=== PATIENT | female | born 1930 | race Caucasian/White ===

== ENCOUNTER 2017-08-21 07:47 | Emergency (ER) | payer MEDICARE ==
[~2017-08-21] VITALS: Ht 167.6 cm; Wt 88.6 kg
[~2017-08-21 07:47] MED LIST: AMLO5TAB PO; CHOL2000 PO; CYAN50TA2; LEVO75TA PO; LOSA1TAB41 PO; LUNG SUPPORT PO; OMEP-50 PO; RIVA20TA PO; SIMV20TA PO
[2017-08-21 09:16] VITALS: BP 128/67
[2017-08-21] MEDS ORDERED: CLIN300C17 PO (09:29)
[2017-08-21] MEDS ORDERED: TRAM50TA2 PO (09:29)
== END 2017-08-21 09:51 | disposition home or self-care (01) ==
LOC: ER 07:47
DX: N61.1 Abscess of the breast and nipple (principal); I48.91 Unspecified atrial fibrillation; E78.00 Pure hypercholesterolemia, unspecified; I10 Essential (primary) hypertension; E11.9 Type 2 diabetes mellitus without complications; E03.9 Hypothyroidism, unspecified; Z98.890 Other specified postprocedural states; Z88.2 Allergy status to sulfonamides; Z88.5 Allergy status to narcotic agent; Z79.899 Other long term (current) drug therapy
CPT/HCPCS: 99283

== ENCOUNTER 2018-01-21 14:05 | Emergency (ER) | payer MEDICARE ==
[~2018-01-21] VITALS: Ht 167.6 cm; Wt 84.1 kg
[~2018-01-21 14:05] MED LIST changes: +CLIN300C17 PO
[2018-01-21 15:48] VITALS: BP 138/63
== END 2018-01-21 15:57 | disposition home or self-care (01) ==
LOC: ER 14:06
DX: S40.011A Contusion of right shoulder, initial encounter (principal); S50.11XA Contusion of right forearm, initial encounter; I48.91 Unspecified atrial fibrillation; E78.00 Pure hypercholesterolemia, unspecified; I10 Essential (primary) hypertension; E11.9 Type 2 diabetes mellitus without complications; E03.9 Hypothyroidism, unspecified; Z98.890 Other specified postprocedural states; Z88.2 Allergy status to sulfonamides; Z88.5 Allergy status to narcotic agent; Z79.899 Other long term (current) drug therapy; Z79.2 Long term (current) use of antibiotics; Z95.0 Presence of cardiac pacemaker; K44.9 Diaphragmatic hernia without obstruction or gangrene; W18.39XA Other fall on same level, initial encounter; Y93.89 Activity, other specified; Y92.89 Other specified places as the place of occurrence of the external cause; Y99.8 Other external cause status
CPT/HCPCS: 71045; 73030; 73060; 99284

== ENCOUNTER 2018-05-04 08:44 | Emergency (ER) | payer MEDICARE ==
[~2018-05-04] VITALS: Ht 167.6 cm; Wt 87.0 kg
[~2018-05-04 08:44] MED LIST changes: -AMLO5TAB PO; -CLIN300C17 PO; +FERR324T4 PO; -LOSA1TAB41 PO
[2018-05-04 09:09] VITALS: BP 125/72
--- NOTE | 2018-05-04 12:27 | NUR ---
Dr. Antoine at bedside. Verbal order for a cadilac splint.
[2018-05-04] MEDS ORDERED: WHEE1EAC12 MC (12:49)
== END 2018-05-04 13:05 | disposition home or self-care (01) ==
LOC: ER 08:44
DX: S82.892A Other fracture of left lower leg, initial encounter for closed fracture (principal); I48.91 Unspecified atrial fibrillation; E78.00 Pure hypercholesterolemia, unspecified; I10 Essential (primary) hypertension; E11.9 Type 2 diabetes mellitus without complications; E03.9 Hypothyroidism, unspecified; Z98.890 Other specified postprocedural states; Z88.2 Allergy status to sulfonamides; Z88.5 Allergy status to narcotic agent; Z79.899 Other long term (current) drug therapy; Z79.01 Long term (current) use of anticoagulants; W00.2XXA Other fall from one level to another due to ice and snow, initial encounter; Y93.89 Activity, other specified; Y92.89 Other specified places as the place of occurrence of the external cause; Y99.9 Unspecified external cause status
CPT/HCPCS: 29515; 73590; 73610; 99284

== ENCOUNTER 2018-05-16 11:36 | Outpatient (CLI) | payer MEDICARE ==
[~2018-05-16 11:36] MED LIST changes: +WHEE1EAC12 MC
[2018-05-16 11:40] VITALS: BP 154/79
== END 2018-05-16 12:15 | disposition home or self-care (01) ==
LOC: ORTHO 11:36
PROVIDERS: ATTEND Nurse Practitioner Family
DX: S82.62XA Displaced fracture of lateral malleolus of left fibula, initial encounter for closed fracture (principal); M79.89 Other specified soft tissue disorders; M25.472 Effusion, left ankle; M77.32 Calcaneal spur, left foot; I10 Essential (primary) hypertension; E11.9 Type 2 diabetes mellitus without complications; I48.91 Unspecified atrial fibrillation; W00.0XXA Fall on same level due to ice and snow, initial encounter; Y93.89 Activity, other specified; Y92.89 Other specified places as the place of occurrence of the external cause; Y99.8 Other external cause status
CPT/HCPCS: 73610; 99213

== ENCOUNTER 2018-06-06 10:59 | Outpatient (CLI) | payer MEDICARE ==
[2018-06-06 10:59] VITALS: BP 155/87
== END 2018-06-06 11:42 | disposition home or self-care (01) ==
LOC: ORTHO 10:59
PROVIDERS: ATTEND Nurse Practitioner Family
DX: S82.62XD Displaced fracture of lateral malleolus of left fibula, subsequent encounter for closed fracture with routine healing (principal); S82.65XD Nondisplaced fracture of lateral malleolus of left fibula, subsequent encounter for closed fracture with routine healing; S99.912D Unspecified injury of left ankle, subsequent encounter; W01.0XXD Fall on same level from slipping, tripping and stumbling without subsequent striking against object, subsequent encounter
CPT/HCPCS: 73610; 99213

== ENCOUNTER 2018-06-27 12:02 | Outpatient (CLI) | payer MEDICARE | END 2018-06-27 13:39 | disposition home or self-care (01) | LOC: ORTHO 12:02 | PROVIDERS: ATTEND Orthopaedic Surgery | DX: S82.65XD Nondisplaced fracture of lateral malleolus of left fibula, subsequent encounter for closed fracture with routine healing (principal); X58.XXXD Exposure to other specified factors, subsequent encounter | CPT/HCPCS: 73610; G0463 ==